=== PATIENT | female | born 1945 | race Caucasian/White ===

== ENCOUNTER → 2016-05-09 | Outpatient (CLI) | payer OTHER, BC ==
[~2016-05-09] MED LIST: ADULT LOW DOSE81 MG PO; COUMADIN 5 MG TA5 M1 PO; COZAAR 25 MG TA25 MG PO; FLECAINIDE ACET50 M1; METHOTREXA1 GM/40 M1 PO; NEXIUM10 MG PO; PREDNISONE 2.52.5 M1 PO; PREMARIN0.3 MG PO; SIMVASTATIN5 MG PO; TOPROL XL25 MG PO; ZIAC 2.5/6.252.5 M1
== END ==
LOC: HYPER 07:11
DX: S81.802D Unspecified open wound, left lower leg, subsequent encounter (principal); I87.312 Chronic venous hypertension (idiopathic) with ulcer of left lower extremity; L97.821 Non-pressure chronic ulcer of other part of left lower leg limited to breakdown of skin; I73.9 Peripheral vascular disease, unspecified; L03.116 Cellulitis of left lower limb; M06.9 Rheumatoid arthritis, unspecified; F17.210 Nicotine dependence, cigarettes, uncomplicated; X58.XXXD Exposure to other specified factors, subsequent encounter

== ENCOUNTER → 2016-05-16 | Outpatient (CLI) | payer OTHER, BC | LOC: HYPER 07:00 | DX: I87.312 Chronic venous hypertension (idiopathic) with ulcer of left lower extremity (principal); L97.821 Non-pressure chronic ulcer of other part of left lower leg limited to breakdown of skin; I70.248 Atherosclerosis of native arteries of left leg with ulceration of other part of lower leg; M06.9 Rheumatoid arthritis, unspecified; F17.210 Nicotine dependence, cigarettes, uncomplicated ==

== ENCOUNTER → 2016-05-23 | Outpatient (CLI) | payer OTHER, BC | LOC: HYPER 07:06 | DX: S81.802D Unspecified open wound, left lower leg, subsequent encounter (principal); I87.312 Chronic venous hypertension (idiopathic) with ulcer of left lower extremity; I70.249 Atherosclerosis of native arteries of left leg with ulceration of unspecified site; L97.821 Non-pressure chronic ulcer of other part of left lower leg limited to breakdown of skin; L03.116 Cellulitis of left lower limb; I73.9 Peripheral vascular disease, unspecified; M06.9 Rheumatoid arthritis, unspecified; M19.90 Unspecified osteoarthritis, unspecified site; F17.210 Nicotine dependence, cigarettes, uncomplicated; X58.XXXD Exposure to other specified factors, subsequent encounter ==

== ENCOUNTER → 2016-06-03 | Outpatient (CLI) | payer OTHER, BC | LOC: HYPER 07:06 | DX: I87.312 Chronic venous hypertension (idiopathic) with ulcer of left lower extremity (principal); L97.821 Non-pressure chronic ulcer of other part of left lower leg limited to breakdown of skin; I70.248 Atherosclerosis of native arteries of left leg with ulceration of other part of lower leg; I49.9 Cardiac arrhythmia, unspecified; M19.90 Unspecified osteoarthritis, unspecified site; M06.9 Rheumatoid arthritis, unspecified; F17.210 Nicotine dependence, cigarettes, uncomplicated; Z90.710 Acquired absence of both cervix and uterus ==

== ENCOUNTER → 2016-06-17 | Outpatient (CLI) | payer OTHER, BC | LOC: HYPER 07:11 | DX: S81.802A Unspecified open wound, left lower leg, initial encounter (principal); I87.312 Chronic venous hypertension (idiopathic) with ulcer of left lower extremity; I70.249 Atherosclerosis of native arteries of left leg with ulceration of unspecified site; L97.821 Non-pressure chronic ulcer of other part of left lower leg limited to breakdown of skin; L03.116 Cellulitis of left lower limb; I73.9 Peripheral vascular disease, unspecified; M06.9 Rheumatoid arthritis, unspecified; M19.90 Unspecified osteoarthritis, unspecified site; F17.210 Nicotine dependence, cigarettes, uncomplicated; X58.XXXA Exposure to other specified factors, initial encounter; Y93.89 Activity, other specified; Y92.89 Other specified places as the place of occurrence of the external cause; Y99.8 Other external cause status ==